=== PATIENT | male | born 1980 | race Caucasian/White ===

== ENCOUNTER 2018-06-22 10:41 | Emergency (ER) | payer MEDICARE ==
[~2018-06-22] VITALS: Ht 180.3 cm; Wt 68.2 kg
[2018-06-22] MEDS ORDERED: NIFEDIPINE ER90 MG PO (10:54)
[2018-06-22] MEDS ORDERED: NORMODYNE / TR100 MG PO ×2 (10:54→10:55)
[2018-06-22] MEDS ORDERED: CATAPRES TTS-20.2 MG TD (10:54)
[2018-06-22 11:39] LABS: HEMATOCRIT 37.6 % (42.0-54.0); HEMOGLOBIN 12.9 g/dL (13.5-17.5); MCH 28.9 pg (26.0-34.0); MCHC 34.3 g/dL (31.0-37.0); MCV 84.3 fL (80.0-100.0); MEAN PLATELET VOLUME 7.9 fL (7.4-10.4); NEUTROPHILS 70.7 % (40-80); PLATELET COUNT 138 10x3/uL (130-400); RBC 4.46 10x6/uL (4.20-6.10); RDW 15.1 % (11.5-14.5); WBC 6.8 10x3/uL (4.8-10.8)
[2018-06-22 11:47] LABS: ALBUMIN 3.4 g/dL (3.4-5.0); ANION GAP 23.7 mmol/L (8-16); BILIRUBIN - TOTAL 0.5 mg/dL (0.2-1.3); CALCIUM 8.8 mg/dL (8.5-10.1); CARBON DIOXIDE 21.5 mmol/L (21.0-32.0); CREATININE - SERUM 13.8 mg/dL (0.6-1.3); POTASSIUM - SERUM 5.2 mmol/L (3.5-5.1); PROTEIN - SERUM 7.6 g/dL (6.4-8.2)
[2018-06-22 13:32] VITALS: BP 224/139
[2018-06-22 15:30] VITALS: Ht 180.3 cm; Wt 68.2 kg
== END 2018-06-22 16:01 | disposition other institution (70) ==
LOC: D.ER 10:41 → EDBD 10:41 → D.ER 16:01
PROVIDERS: Family Medicine
DX: I12.9 Hypertensive chronic kidney disease with stage 1 through stage 4 chronic kidney disease, or unspecified chronic kidney disease (principal); N18.9 Chronic kidney disease, unspecified; Z99.2 Dependence on renal dialysis

== ENCOUNTER 2018-06-24 08:26 | Emergency (ER) | payer BC, MEDICARE ==
[~2018-06-24] VITALS: Ht 180.3 cm; Wt 68.2 kg
[~2018-06-24 08:26] MED LIST: CATAPRES TTS-20.2 MG TD; NIFEDIPINE ER90 MG PO; NORMODYNE / TR100 MG PO
[2018-06-24 08:37] VITALS: Ht 180.3 cm; Wt 68.2 kg
[2018-06-24 10:02] VITALS: BP 239/148
== END 2018-06-24 10:04 | disposition home or self-care (01) ==
LOC: D.ER 08:26
DX: I12.0 Hypertensive chronic kidney disease with stage 5 chronic kidney disease or end stage renal disease (principal); N18.6 End stage renal disease; Z99.2 Dependence on renal dialysis

== ENCOUNTER 2018-06-24 12:16 | Emergency (ER) | payer BC, MEDICARE ==
[~2018-06-24] VITALS: Ht 180.3 cm; Wt 68.2 kg
[2018-06-24 12:21] VITALS: BP 213/117; Ht 180.3 cm; Wt 68.2 kg
== END 2018-06-24 17:00 | disposition home or self-care (01) ==
LOC: D.ER 12:16
DX: I12.0 Hypertensive chronic kidney disease with stage 5 chronic kidney disease or end stage renal disease (principal); N18.6 End stage renal disease; Z99.2 Dependence on renal dialysis